=== PATIENT | male | born 1955 | race Caucasian/White ===

== ENCOUNTER 2016-11-25 13:13 | Observation (INO) | payer OTHER ==
[~2016-11-25] VITALS: Ht 182.9 cm; Wt 138.3 kg
[2016-11-25 14:54] LABS: HEMOGLOBIN 15.7 gm/dl (14.0-17.5); RED BLOOD COUNT 4.9 M/UL (4.20-5.50); WHITE BLOOD COUNT 16.6 K/UL (4.5-11.0)
[2016-11-25 15:13] LABS: BUN/CREATININE RATIO 19 (0-10)
[2016-11-26 06:01] LABS: RED BLOOD COUNT 4.47 M/UL (4.20-5.50)
[2016-11-26 06:04] LABS: WHITE BLOOD COUNT 12.4 K/UL (4.5-11.0)
[2016-11-26] MEDS ORDERED: POTASSIUM99 MG PO (06:23)
[2016-11-26] MEDS ORDERED: MAGNESIUM500 MG PO (06:23)
[2016-11-26 06:24] LABS: BUN/CREATININE RATIO 23 (0-10)
[2016-11-26] MEDS ORDERED: VITAMIN C 500500 MG PO (06:24)
[2016-11-26] MEDS ORDERED: ONE DAILY FOR1 EACH PO (06:24)
[2016-11-26] MEDS ORDERED: TUMERIC PO (06:25)
[2016-11-27 05:51] LABS: HEMOGLOBIN 14.2 gm/dl (14.0-17.5); RED BLOOD COUNT 4.53 M/UL (4.20-5.50); WHITE BLOOD COUNT 11.7 K/UL (4.5-11.0)
[2016-11-27 06:16] LABS: BUN/CREATININE RATIO 17 (0-10)
[2016-11-28 06:06] LABS: HEMOGLOBIN 14.4 gm/dl (14.0-17.5); RED BLOOD COUNT 4.6 M/UL (4.20-5.50); WHITE BLOOD COUNT 13.5 K/UL (4.5-11.0)
[2016-11-28 06:24] LABS: BUN/CREATININE RATIO 15 (0-10)
[2016-11-28] MEDS ORDERED: LEVAQUIN500 MG PO (16:20)
[2016-11-28] MEDS ORDERED: VIBRAMYCIN100 MG PO (16:55)
== END 2016-11-28 17:55 | disposition home or self-care (01) ==
LOC: ER1 13:13 → M/S 15:35 → ZEROF 15:35 → M/S 15:35
PROVIDERS: Emergency Medicine; Physician Assistant Medical; ADMIT Emergency Medicine
DX: L03.116 Cellulitis of left lower limb (principal); D72.829 Elevated white blood cell count, unspecified; E11.9 Type 2 diabetes mellitus without complications; E87.1 Hypo-osmolality and hyponatremia; F17.210 Nicotine dependence, cigarettes, uncomplicated; Z82.49 Family history of ischemic heart disease and other diseases of the circulatory system; Z90.89 Acquired absence of other organs
CPT/HCPCS: 36415; 80048; 80053; 80061; 80202; 81001; 82962; 83036; 83735; 85025; 85027; 85730; 86140; 87040; 93926; 93971; 96365; 96366; 96372; 96375; 99284; G0378; J1650; J1885; J1956; J2543; J3370; J7030; J7050; J7070

== ENCOUNTER 2021-03-05 16:41 | Emergency (ER) | payer MEDICARE ==
[~2021-03-05 16:41] MED LIST: LEVAQUIN500 MG PO; MAGNESIUM500 MG PO; ONE DAILY FOR1 EACH PO; POTASSIUM99 MG PO; TUMERIC PO; VIBRAMYCIN100 MG PO; VITAMIN C 500500 MG PO
== END 2021-03-05 16:47 | disposition expired ==
LOC: ER1 16:41
DX: I46.9 Cardiac arrest, cause unspecified (principal)
CPT/HCPCS: 31500; 82962; 92950; 94760; 99285; J0171